=== PATIENT | male | born 1975 | race Caucasian/White ===

== ENCOUNTER 2018-02-05 16:23 | Emergency (ER) | payer MEDICAID ==
[2018-02-05] MEDS ORDERED: NS 500 ML IV ONE (16:30)
[2018-02-05] MEDS ORDERED: IOPAMIDOL (ISOVUE-300) 100 ML BTL ONE (16:34)
--- NOTE | 2018-02-05 16:38 | EDPHY ---
H & P Time Seen by Provider: 02/05/18 16:30 HPI/ROS: HPI Fall from a ladder. 42-year-old male by ambulance from home. This patient was attempting to clean his gutters at his house. He reports that he climbed up his ladder to the edge of the roof in the gutter. The ladder started collapsing beneath him when he got there. He slid down the ladder fell backward and landed on the ground hitting his thoracic and mid back 1st followed by the back of his head. He reports he was dazed but did not lose consciousness. This time he complains of some back pain, left side mid to lower back. He has a mild headache. He denies any neck pain. He denies any loss of sensation or weakness in his extremities. He denies any significant extremity pain. He is not on anticoagulants or antiplatelet agents. ROS: Constitutional: No fever, no chills. No weakness. Eyes: No discharge. No changes in vision. ENT: No sore throat. No nasal congestion or rhinorrhea. Respiratory: No cough. No shortness of breath. Cardiac: No chest pain, no palpitations. Gastrointestinal: No abdominal pain, no vomiting, no diarrhea. Genitourinary: No hematuria. No dysuria or increased frequency with urination. Musculoskeletal: As above. No neck pain. No myalgias or arthralgias. Skin: No rashes. Neurological: No headache. No focal weakness or altered sensation. 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 He is currently scheduled for further workup at [facility]. Social history: Nonsmoker. 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 Denies alcohol. Here with significant other. Physical Exam: General Appearance: Alert, no distress. This patient is responding to questions appropriately and in full sentences. This patient appears well- hydrated and well-nourished. Head: Normocephalic atraumatic. Face: Facial bones are stable on palpation. Eyes: Pupils equal and round and reactive to light, no pallor or injection. No lid erythema or edema. ENT, Mouth: Mucous membranes moist. Dentition is intact. No malocclusion of the jaw. No tongue lacerations or abrasions. Pharynx is clear. The bilateral nasal canals are clear. No septal hematoma. Respiratory: There are no retractions, lungs are clear to auscultation with good air movement bilaterally. Chest wall is stable to AP and lateral palpation. Cardiovascular: Regular rate and rhythm. No murmur. Gastrointestinal: Abdomen is soft and nontender, no masses, bowel sounds normal. Neurological: Motor sensory function is intact. Cranial nerves are normal. Cerebellar function intact. Skin: Warm and dry, no rashes. No lacerations, he has an abrasion to the anterior right knee and lateral aspect of anterior mid right leg. No suturable lacerations. Musculoskeletal: Neck is supple and nontender. The trachea is midline. Tenderness on palpation paraspinal left side T11 and T12. No midline cervical, lumbar or sacral tenderness on palpation. No flank tenderness on palpation. Extremities are symmetrical, full range of motion. All joints in the bilateral upper and bilateral lower extremities range without pain or impingement. No tenderness on palpation of the long bones in the bilateral upper and bilateral lower extremities. Psychiatric: No agitation. No depression. Database: EKG: Imaging: CT head and cervical spine without contrast: Negative for acute pathology. Degenerative changes noted. Results were discussed with staff radiologist Dr. Rashel Vera. CT chest abdomen and pelvis with spinal reconstitute with contrast: Negative. Results were discussed with staff radiologist Dr. Rashel Vera. Procedures: Emergency department course: IV placed per EMS. Vital signs reviewed and are stable. Patient started on IV normal saline with 500 cc to be given over the next hour. Point of care creatinine within normal limits. Based on his mechanism I discussed CT imaging as above. He consents. 5:30 p.m., patient re-evaluated. Cervical collar clinically and radiographically cleared at this time. 5:50 p.m., patient re-evaluated. Resting comfortably at this time. Repeat neurologic Assessment is nonfocal. Results of CT scans discussed with him and family. We got the patient up. He was able ambulate under his own power without difficulty. He does not have any significant complaints. He does feel comfortable going home with his family at this time. Follow-up and return to emergency department precautions were reviewed with him. All of his questions were answered. He was discharged from the emergency department in good condition with family. Differential Diagnosis: The differential diagnosis on this patient includes but is not limited to fall from 20 ft, thoracic compression fracture. Traumatic brain injury, cervical spine fracture, extremity fracture/dislocation unlikely. This represents a partial list of diagnoses considered. These considerations are based on history , physical exam, past history, reassessment and diagnostic testing. Allergies/Adverse Reactions: Tetracyclic Antidepressants Allergy (Verified 02/05/18 16:59) Home Medications: Medication Instructions Recorded NK [No Known Home Meds] 02/05/18 Medical Decision Making - Diagnostics Imaging Results: Imaging Impressions Cervical Spine CT 02/05/18 16:30 Impression: Negative noncontrast CT of the head with no intracranial posttraumatic sequela identified. CT Cervical Spine Without Contrast History: Trauma. Technique: Multislice helical CT through the cervical spine without contrast from the skull base to T1. Soft tissue and bone evaluation was performed. Sagittal and coronal reconstructions were obtained and reviewed. Dose reduction techniques were utilized. Findings: There is straightening of the normal cervical curvature, which may reflect muscle spasm. No fracture or dislocation is identified. The relationship between skull base and C1 is normal. The C1-C2 articulation demonstrates degenerative change with no acute abnormality appreciated. The odontoid process is normal. The cervical thoracic junction is normal. Soft tissue window evaluation does not show evidence of epidural or prevertebral hematoma. Degenerative changes are noted, most pronounced at the C5-C6 level, where there is disk space loss, vacuum disk phenomenon and vertebral body osteophytic lipping. Impression: 1. Negative for fracture. 2. Straightening of the cervical curvature may reflect muscle spasm. 3. Degenerative changes are noted. Results called and discussed with Dr. Sharri Marx on February 05, 2018 at [address] 02/05/18 16:30 Impression: Negative noncontrast CT of the head with no intracranial posttraumatic sequela identified. CT Cervical Spine Without Contrast History: Trauma. Technique: Multislice helical CT through the cervical spine without contrast from the skull base to T1. Soft tissue and bone evaluation was performed. Sagittal and coronal reconstructions were obtained and reviewed. Dose reduction techniques were utilized. Findings: There is straightening of the normal cervical curvature, which may reflect muscle spasm. No fracture or dislocation is identified. The relationship between skull base and C1 is normal. The C1-C2 articulation demonstrates degenerative change with no acute abnormality appreciated. The odontoid process is normal. The cervical thoracic junction is normal. Soft tissue window evaluation does not show evidence of epidural or prevertebral hematoma. Degenerative changes are noted, most pronounced at the C5-C6 level, where there is disk space loss, vacuum disk phenomenon and vertebral body osteophytic lipping. Impression: 1. Negative for fracture. 2. Straightening of the cervical curvature may reflect muscle spasm. 3. Degenerative changes are noted. Results called and discussed with Dr. Sharri Marx on February 05, 2018 at [address] 02/05/18 16:31 Impression: 1. CT scan of the abdomen, pelvis and lumbar spine negative for acute posttraumatic sequela. 2. Degenerative changes noted in the lower lumbar spine. 3. See above report for additional findings. Results called and discussed with Sharri Marx MD on 02/05/2018 at 17: [address] 02/05/18 16:31 Impression: 1. The chest is negative for definite acute posttraumatic sequela. 2. See above report for additional findings. A preliminary report was called to the Emergency Department. Lumbar Spine CT 02/05/18 16:31 Impression: 1. CT scan of the abdomen, pelvis and lumbar spine negative for acute posttraumatic sequela. 2. Degenerative changes noted in the lower lumbar spine. 3. See above report for additional findings. Results called and discussed with Sharri Marx MD on 02/05/2018 at 17: [address] 02/05/18 16:31 Impression: 1. The chest is negative for definite acute posttraumatic sequela. 2. See above report for additional findings. A preliminary report was called to the Emergency Department. - Data Points Laboratory Results: 02/05/18 02/05/18 16:40 16:30 POC Hgb 15.6 gm/dL gm/dL (13.7-17.5) POC Hct 46 % % (40-51) POC Sodium 142 mEq/L mEq/L (135-145) POC Potassium 3.6 mEq/L mEq/L (3.3-5.0) POC Chloride 106 mEq/L mEq/L (97-110) POC BUN 11 mg/dL mg/dL (7-23) POC Creatinine 1.0 mg/dL mg/dL (0.7-1.3) POC Glucose 87 mg/dL mg/dL (70-100) Ethyl Alcohol < 10 mg/dL mg/dL (0-10) Medications Given: Discontinued Medications Sodium Chloride (Ns) 500 mls @ 0 mls/hr IV ONCE ONE; Wide Open PRN Reason: Protocol Stop: 02/05/18 16:31 Last Admin: 02/05/18 17:04 Dose: 500 mls Point of Care Test Results: Chemistry 02/05/18 16:40 POC Sodium 142 mEq/L mEq/L (135-145) POC Potassium 3.6 mEq/L mEq/L (3.3-5.0) POC Chloride 106 mEq/L mEq/L (97-110) POC BUN 11 mg/dL mg/dL (7-23) POC Creatinine 1.0 mg/dL mg/dL (0.7-1.3) POC Glucose 87 mg/dL mg/dL (70-100) ISTAT H&H 02/05/18 16:40 POC Hgb 15.6 gm/dL gm/dL (13.7-17.5) POC Hct 46 % % (40-51) Departure - Departure Disposition: Home, Routine, Self-Care Clinical Impression: Fall from ladder Condition: Good Instructions: Back Pain (ED) Additional Instructions: Read and follow provided instructions. Follow-up with your primary care physician in 1-2 days for re-evaluation. Ibuprofen dosin mg every 6 hours with meals for the next 3 days only. Take only as needed for pain. Return to the emergency department for worsening pain, loss of sensation in your extremities, bowel or bladder incontinence, nausea and vomiting, worsening headache or other serious concerns. Referrals: Patient,NotPresent [Unknown] - As per Instructions
[2018-02-05 18:08] VITALS: BP 149/107
== END 2018-02-05 18:09 | disposition home or self-care (01) ==
LOC: EDUNIT#
DX: S29.9XXA Unspecified injury of thorax, initial encounter (principal); E86.9 Volume depletion, unspecified; W11.XXXA Fall on and from ladder, initial encounter; Y92.009 Unspecified place in unspecified non-institutional (private) residence as the place of occurrence of the external cause
CPT/HCPCS: 82435-PO; 82565-PO; 82947-PO; 84132-PO; 84295-PO; 84520-PO; 85014-PO; G0480; Q9967